=== PATIENT | female | born 1995 | race Two or more races ===

== ENCOUNTER 2020-04-05 13:02 | Inpatient (IN) | payer OTHER ==
[~2020-04-05] VITALS: Ht 157.5 cm; Wt 81.6 kg
[2020-04-12] MEDS ORDERED: PRENATAL TABLE1 EAC3 PO (13:01)
== END 2020-04-14 11:58 | disposition home or self-care (01) | DRG 798 ==
LOC: LDR 04-12 11:44 → OB/GYN 04-12 11:44
PROVIDERS: ADMIT Specialist; ATTEND Specialist
PROC: 10E0XZZ Delivery of Products of Conception, External Approach (ICD-10-PCS; principal; 2020-04-12)
PROC: 10907ZC Drainage of Amniotic Fluid, Therapeutic from Products of Conception, Via Natural or Artificial Opening (ICD-10-PCS; 2020-04-12)
PROC: 4A1HXCZ Monitoring of Products of Conception, Cardiac Rate, External Approach (ICD-10-PCS; 2020-04-12)
PROC: 0UL70ZZ Occlusion of Bilateral Fallopian Tubes, Open Approach (ICD-10-PCS; 2020-04-13)
DX: O80 Encounter for full-term uncomplicated delivery (principal); Z37.0 Single live birth; Z3A.36 36 weeks gestation of pregnancy; Z30.2 Encounter for sterilization